=== PATIENT | male | born 1990 | race Caucasian/White ===

== ENCOUNTER → 2018-10-17 | Outpatient (CLI) | payer BC ==
[~2018-10-17] MED LIST: AMOXICILLI250 MG/5 M PO; NO HOME MEDICATIONS
== END ==
LOC: COL.RAD 09:47
DX: K76.0 Fatty (change of) liver, not elsewhere classified (principal); K82.0 Obstruction of gallbladder

== ENCOUNTER 2020-08-14 13:38 | Emergency (ER) | payer BC ==
[~2020-08-14] VITALS: Ht 177.8 cm; Wt 97.7 kg
[2020-08-14 14:07] VITALS: BP 193/115; TEMP 98.8
[2020-08-14] MEDS ORDERED: NORCO 325 MG-51 TAB PO (14:32)
[2020-08-14 15:20] VITALS: PULSE 71
== END 2020-08-14 15:20 | disposition home or self-care (01) ==
LOC: COL.ER 13:38
DX: K08.89 Other specified disorders of teeth and supporting structures (principal)